=== PATIENT | female | born 1940 | race African-American/Black ===

== ENCOUNTER 2016-09-20 13:40 | Inpatient (IN) | payer MEDICARE, OTHER ==
[2016-09-13 18:02] LABS: BASOPHILS 0.5 %; BASOPHILS ABSOLUTE 0.03 10/3/uL (0.0-0.16); EOSINOPHILS 7.4 %; EOSINOPHILS ABSOLUTE 0.41 10/3/uL (0.0-0.53); HEMOGLOBIN 10.5 g/dL (12.0-16.0); IMMATURE GRANULOCYTES 0.4 %; IMMATURE GRANULOCYTES ABSOLUTE 0.02 10/3/uL (0.0-0.11); LYMPHOCYTES 29.2 %; LYMPHOCYTES ABSOLUTE 1.61 10/3/uL (0.67-4.30); MONOCYTES 7.8 %; MONOCYTES ABSOLUTE 0.43 10/3/uL (0.21-1.20); NEUTROPHILS 54.7 %; NEUTROPHILS ABSOLUTE 3.02 10/3/uL (2.02-8.40); WHITE BLOOD CELLS 5.5 10/3/uL (4.5-10.5)
[2016-09-13 18:03] LABS: HEMATOCRIT 35.4 % (36.0-48.0); MANUAL DIFF NO %; MEAN CORPUS HGB CONC 29.7 g/dL (32.0-36.0); MEAN CORPUSCULAR HEMOGLOB 25.6 pg (26.0-34.0); MEAN CORPUSCULAR VOLUME 86.3 fL (80-100); PLATELET COUNT 265 10/3/uL (150-400); RBC DISTRIBUTION WIDTH 18.5 % (12.0-16.0)
[2016-09-13 18:18] LABS: INTERNATIONAL NORMAL RATI 2.1 UNITS (-)
[2016-09-13 18:19] LABS: A/G RATIO 0.8 (0.7-1.9); ALBUMIN 3.7 G/DL (3.5-5.0); ALKALINE PHOSPHATASE 170 U/L (45-117); CALCIUM, SERUM 9.2 MG/DL (8.5-10.4); CHLORIDE, SERUM 103 MMOL/L (96-112); CO2 (CARBON DIOXIDE) 28 MMOL/L (24-34); CREATININE 1.41 MG/DL (0.55-1.02); GFR AFRICAN AMERICAN 42 ML/MIN (>=60); GFR NON AFRICAN AMERICAN 36 ML/MIN (>=60); GLOBULIN 4.7 G/DL (2.5-4.1); POTASSIUM, SERUM 3.6 MMOL/L (3.5-5.3); SGOT(AST) 17 U/L (5-40); SGPT(ALT) 16 U/L (5-65); SODIUM, SERUM 142 MMOL/L (135-148); TOTAL BILIRUBIN 0.3 MG/DL (0-1.2); TOTAL PROTEIN 8.4 G/DL (6.0-8.5)
[2016-09-13 18:19] LABS: PROTIME (NOT ORD) 23.5 SEC (12.0-14.5)
[2016-09-13 18:20] LABS: BUN (BLOOD UREA NITROGEN) 20 MG/DL (6-23); GLUCOSE, SERUM 169 MG/DL (60-99)
[2016-09-13 19:09] LABS: ASCORBIC ACID (UR NOT ORDER) NEG (NEG); BILIRUBIN, URINE NEGATIVE (NEG); KETONE, URINE NEGATIVE (NEG); LEUKOCYTE ESTERASE(NOT OR MOD (NEG); WBC (NOT ORDERED) (RFLEX) 3 (0-5)
--- NOTE | ~2016-09-20 | OP ---
Record Of Operation [facility] [address] [place]. [address] NAME: VAL JAMES : 38 STATUS : ADM IN PAT#: [id number] AGE: 76 ADM/REG DATE : 09/20/16 MR#: [id number] REPORT SERV DATE: 09/21/16 DICTATED BY: VALORIE KAMINSKI DATE: 09/21/16 REPORT STATUS : Draft TRANSCRIBED BY: MODL DATE: 09/21/16 DATE OF PROCEDURE: 09/20/2016 PREOPERATIVE DIAGNOSIS: Failed right total knee arthroplasty. POSTOPERATIVE DIAGNOSIS: Failed right total knee arthroplasty. PROCEDURE: Right total knee revision arthroplasty, patella and tibia. CUSTOMER SUCCESS DIRECTOR: See chart. DESCRIPTION OF PROCEDURE: The patient was taken to the operating room and placed supine on the table in normal fashion without incident. General anesthetic was induced per the anesthesiologist. The patient was carefully positioned, padded, prepped, and draped in normal sterile fashion. Right lower extremity was exsanguinated and tourniquet was inflated to 350. Sharp dissection was made through the old incision with electrocautery through the fat. Sharp quad splitting approach was carried out. The patella was subluxed. A benign- appearing fluid was sent for cultures and Gram stain. There was abundant hypertrophic synovium, meticulously debrided with electrocautery and rongeur. Femoral component was carefully inspected and felt to be intact. I carefully probed all around the bone cement interface and found no evidence of loosening whatsoever. There was also no evidence of motion. The tibia on the other hand had an obvious severe wear and loosening and was removed with a flexible osteotomes. Meticulous debridement was done of granulation tissue and cement. Sequential reamers were used in the tibia and an intramedullary guide was used to cut the proximal tibia. I opted for a step cut reconstruction. With the trial tibia in place, there was excellent medial and lateral balance and excellent flexion and extension balance. Examination of the patella revealed that it was severely delaminated. I therefore removed the patella with an oscillating saw and redrilled drilled with the patella drill guide after removing the patellar pegs. This gave excellent patellar tracking and excellent reconstruction. All surfaces were copiously irrigated with pulsatile lavage. Cement premixed with antibiotic was pressurized in a doughy phase in the tibia. The tibial component placed, impacted, and excess cement removed. The knee was brought out into extension on a trial spacer. Cement was pressurized in the patella. The patellar component placed, held with a clamp, and excess cement removed. Once all cement was hardened, the knee was taken through range of motion. Further extruded cement was removed with a small osteotome. The actual insert was then placed, impacted, checked to be sure it was sound and snug. The knee was taken through range of motion. Gave excellent medial and lateral balance and excellent flexion and extension balance. The knee was closed in a layered fashion over medium ConstaVac drain superolaterally. The wound was dressed sterilely. The patient was awakened and taken to the postanesthesia care unit without incident. COMPLICATIONS: None. SPECIMENS: None. BLOOD LOSS: Trace. Record Of Operation [address] [address] NAME: VAL JAMES : 38 STATUS : ADM IN [facility]#: [id number] AGE: 76 ADM/REG DATE : 09/20/16 MR#: [id number] REPORT SERV DATE: 09/21/16 DICTATED BY: VALORIE KAMINSKI DATE: 09/21/16 REPORT STATUS : Draft TRANSCRIBED BY: TOMA DATE: 09/21/16 WTB/TOMA Russell Kaminski M.D. / [id number] CC: Russell Kaminski M.D.
[~2016-09-20 13:40] MED LIST: AMARYL2 PO; C5 PO; COREG12 PO; DIOVAN320 MG PO; L80 PO; LASIX PO; LIPITOR20 PO; LISINOPRIL40 MG PO; NEXIUM40 PO; NORCO1 TA1 PO; NORV5 PO; XARELTO20 MG PO; ZETIA PO
[2016-09-20 14:21] LABS: INTERNATIONAL NORMAL RATI 1.5 UNITS (-)
[2016-09-20 14:24] LABS: PROTIME (NOT ORD) 17.8 SEC (12.0-14.5)
[2016-09-21 05:18] LABS: HEMOGLOBIN 9.1 g/dL (12.0-16.0)
[2016-09-21 05:23] LABS: INTERNATIONAL NORMAL RATI 1.4 UNITS (-); PROTIME (NOT ORD) 16.6 SEC (12.0-14.5)
[2016-09-21 07:29] LABS: BUN (BLOOD UREA NITROGEN) 19 MG/DL (6-23); CALCIUM, SERUM 8.6 MG/DL (8.5-10.4); CHLORIDE, SERUM 104 MMOL/L (96-112); CREATININE 1.11 MG/DL (0.55-1.02); GFR AFRICAN AMERICAN 55 ML/MIN (>=60); GFR NON AFRICAN AMERICAN 48 ML/MIN (>=60); SODIUM, SERUM 142 MMOL/L (135-148)
[2016-09-21 07:30] LABS: CO2 (CARBON DIOXIDE) 33 MMOL/L (24-34); GLUCOSE, SERUM 112 MG/DL (60-99)
[2016-09-22 04:29] LABS: HEMATOCRIT 28.9 % (36.0-48.0); HEMOGLOBIN 8.8 g/dL (12.0-16.0)
[2016-09-22 04:35] LABS: INTERNATIONAL NORMAL RATI 1.5 UNITS (-); PROTIME (NOT ORD) 17.5 SEC (12.0-14.5)
[2016-09-22] MEDS ORDERED: C5 PO (14:14)
[2016-09-22] MEDS ORDERED: PCET PO (14:14)
== END 2016-09-22 14:57 | disposition home or self-care (01) | DRG 467 ==
LOC: SDC/OF 13:40 → 3SO 20:10
PROVIDERS: Specialist
PROC: 0SPC0JZ Removal of Synthetic Substitute from Right Knee Joint, Open Approach (ICD-10-PCS; 2016-09-20)
PROC: 0SRC0JZ Replacement of Right Knee Joint with Synthetic Substitute, Open Approach (ICD-10-PCS; principal; 2016-09-20 15:30)
DX: T84.092A Other mechanical complication of internal right knee prosthesis, initial encounter (principal); D62 Acute posthemorrhagic anemia; E11.9 Type 2 diabetes mellitus without complications; I48.91 Unspecified atrial fibrillation; I10 Essential (primary) hypertension; E78.5 Hyperlipidemia, unspecified; K21.9 Gastro-esophageal reflux disease without esophagitis; E66.9 Obesity, unspecified; Z68.38 Body mass index [BMI] 38.0-38.9, adult; Z79.01 Long term (current) use of anticoagulants
CPT/HCPCS: 36415; 71020-PO; 80048; 80053; 81001; 82962; 85014; 85018; 85025; 85610; 86850; 86900; 86901; 87086; 87641; 88300; 88304; 88311; 93005; 97110-GP; 97116-GP; 97161-GP; 97165-GO; A9270-GY; C1776; J0690; J1170; J1885; J2250; J2274; J2405; J2710; J2795; J3010

== ENCOUNTER 2016-09-30 22:53 | Emergency (ER) | payer MEDICARE, OTHER ==
[~2016-09-30 22:53] MED LIST changes: +PCET PO
[2016-09-30 22:54] LABS: BASOPHILS 0.6 %; BASOPHILS ABSOLUTE 0.04 10/3/uL (0.0-0.16); EOSINOPHILS 6.2 %; HEMATOCRIT 31.7 % (36.0-48.0); HEMOGLOBIN 9.5 g/dL (12.0-16.0); IMMATURE GRANULOCYTES 0.2 %; IMMATURE GRANULOCYTES ABSOLUTE 0.01 10/3/uL (0.0-0.11); LYMPHOCYTES 22.8 %; LYMPHOCYTES ABSOLUTE 1.48 10/3/uL (0.67-4.30); MEAN CORPUSCULAR HEMOGLOB 25.5 pg (26.0-34.0); MEAN PLATELET VOLUME 9.4 fL (9.2-13.0); MONOCYTES 11.7 %; MONOCYTES ABSOLUTE 0.76 10/3/uL (0.21-1.20); NEUTROPHILS 58.5 %; NEUTROPHILS ABSOLUTE 3.81 10/3/uL (2.02-8.40); PLATELET COUNT 302 10/3/uL (150-400); RBC DISTRIBUTION WIDTH 18.3 % (12.0-16.0); RED CELL COUNT 3.73 10/6/uL (4.0-5.6); WHITE BLOOD CELLS 6.5 10/3/uL (4.5-10.5)
[2016-09-30 22:56] LABS: MANUAL DIFF NO %
[2016-09-30 23:03] LABS: PARTIAL THROMBO TIME 44.3 SEC (22.5-37.2)
[2016-09-30 23:04] LABS: PROTIME (NOT ORD) 22.6 SEC (12.0-14.5)
[2016-09-30 23:11] LABS: CALCIUM, SERUM 9.1 MG/DL (8.5-10.4); CHEST PAIN PROFILE TAT 0 Hrs 21 Mins; CHLORIDE, SERUM 103 MMOL/L (96-112); CO2 (CARBON DIOXIDE) 35 MMOL/L (24-34); CREATININE 1.08 MG/DL (0.55-1.02); GFR AFRICAN AMERICAN 57 ML/MIN (>=60); GFR NON AFRICAN AMERICAN 49 ML/MIN (>=60); GLUCOSE, SERUM 118 MG/DL (60-99); POTASSIUM, SERUM 4.3 MMOL/L (3.5-5.3); SODIUM, SERUM 140 MMOL/L (135-148); TROPONIN I 0.03 NG/ML (<0.05)
[2016-09-30 23:12] LABS: BUN (BLOOD UREA NITROGEN) 15 MG/DL (6-23)
[2016-10-01 01:47] LABS: ASCORBIC ACID (UR NOT ORDER) NEG (NEG); BILIRUBIN, URINE NEGATIVE (NEG); ER URINALYSIS TAT 0 Hrs 00 Mins; KETONE, URINE NEGATIVE (NEG); LEUKOCYTE ESTERASE(NOT OR TRACE (NEG); NITRITE (URINE) NEG (NEG); WBC (NOT ORDERED) (RFLEX) 2 (0-5)
== END 2016-10-01 03:32 | disposition home or self-care (01) ==
LOC: ER 22:53
PROVIDERS: Emergency Medicine; Nurse Practitioner Family
DX: M25.561 Pain in right knee (principal); D53.9 Nutritional anemia, unspecified; I10 Essential (primary) hypertension; I48.91 Unspecified atrial fibrillation; K21.9 Gastro-esophageal reflux disease without esophagitis; E11.9 Type 2 diabetes mellitus without complications; J45.909 Unspecified asthma, uncomplicated; Z88.8 Allergy status to other drugs, medicaments and biological substances; Z79.01 Long term (current) use of anticoagulants; Z79.84 Long term (current) use of oral hypoglycemic drugs; Z79.899 Other long term (current) drug therapy
CPT/HCPCS: 70450; 71020; 80048; 81001; 83735; 84484; 85025; 85610; 85730; 93005; 96374; 96375; 99284; J2405